=== PATIENT | female | born 1995 | race Caucasian/White ===

== ENCOUNTER → 2018-04-17 | Outpatient (CLI) | payer OTHER ==
--- NOTE | 2018-04-18 07:55 | XR ---
Lumbosacral spine HISTORY: Low back pain 5 views of the lumbosacral spine No comparisons There is no evident spondylolysis or spondylolisthesis. Lumbar vertebral bodies show preserved height and bone mineralization. Disc spaces are maintained with exception of loss of disc height L5-S1. Pos sible Schmorl's node formation present at superior endplate L1 and L2. IMPRESSION: Disc height loss L5-S1, lumbar MRI may be of benefit.
== END | disposition home or self-care (01) ==
LOC: RADXRMAIN 16:33
PROVIDERS: ATTEND Family Medicine
DX: S39.012A Strain of muscle, fascia and tendon of lower back, initial encounter (principal); M53.87 Other specified dorsopathies, lumbosacral region
CPT/HCPCS: 72110

== ENCOUNTER 2018-10-21 15:12 | Emergency (ER) | payer OTHER ==
[2018-10-21 15:27] VITALS: RESP 18
[2018-10-21] MEDS ORDERED: SODIUM CHLORIDE 0.9% 1,000 ML IV STA (15:33)
--- NOTE | 2018-10-21 16:24 | ED ---
Syncope HPI - General Chief Complaint: Syncope Stated Complaint: Syncope Time Seen by Provider: 10/21/18 15:33 Source: patient Mode of arrival: ambulatory Limitations: no limitations - History of Present Illness Initial Comments: 23-year-old female presenting today for chief complaint of syncope. Patient states just prior to arrival, he was in the shower when she suddenly felt as though she was going to pass out. She states she is unsure how long she was passed out for however it appeared briefly. Patient denies any headache, nausea , vomiting, pain, dyspnea, dyspnea on exertion. Patient denies any abnormal symptoms within the past week. Pt states she does think she hit her head, denies any bruising/bumps, head or neck pain. Pt states she is feeling slightly lightheaded however remaining ROS (-), patient denies any recent fever, chills, shortness of breath, chest pain, back pain, abdominal pain, nausea or vomiting, numbness or tingling, dysuria or hematuria, constipation or diarrhea, headaches or visual changes, or any other complaints. Pt denies experiencing this before. Pt states she doesnt drink water daily. Lips obviously dry on history taking. Pt states she is currently menstruating. - Related Data Home Medications Medication Instructions Recorded Confirmed No Known Home Medications 10/21/18 10/21/18 Allergies Allergy/AdvReac Type Severity Reaction Status Date / Time No Known Allergies Allergy Verified 10/21/18 16:19 Review of Systems ROS Statement: Those systems with pertinent positive or pertinent negative responses have been documented in the HPI. ROS Other: All systems not noted in ROS Statement are negative. Past Medical History Past Medical History: No Reported History Additional Past Medical History / Comment(s): Obstetrical history: this is her first , she's had good care with me since 16 weeks gestation. Her EDC is 01/09/2014 by an 18 week ultrasound. Her blood type is O+ antibodies negative, rubella immune, RPR nonreactive, hepatitis B negative, HIV nonreactive, toxoplasmosis negative. Normal 1 hour glucose tolerance test. History of Any Multi-Drug Resistant Organisms: None Reported Past Surgical History: Section, Tonsillectomy Past Anesthesia/Blood Transfusion Reactions: No Reported Reaction Past Psychological History: ADD/ADHD Smoking Status: Never smoker Past Alcohol Use History: None Reported Past Drug Use History: None Reported - Past Family History Mother Family Medical History: Hypertension Additional Family Medical History / Comment(s): ZAKIA'S MOTHER-HTN General Exam - General Exam Comments Initial Comments: General: The patient is awake and alert, in no distress, and does not appear acutely ill. Eye: Pupils are equal, round and reactive to light, extra-ocular movements are intact. No nystagmus. There is normal conjunctiva bilaterally. No signs of icterus. Ears, nose, mouth and throat: There are dry mucous membranes and no oral lesions. Pt lips cracked Neck: The neck is supple, there is no tenderness or JVD. Cardiovascular: There is a regular rate and rhythm. No murmur, rub or gallop is appreciated. Respiratory: Lungs are clear to auscultation, respirations are non-labored, breath sounds are equal. No wheezes, stridor, rales, or rhonchi. Gastrointestinal: Soft, non-distended, non-tender abdomen without masses or organomegaly noted. There is no rebound or guarding present. No CVA tenderness. Bowel sounds are unremarkable. Musculoskeletal: Normal ROM, no tenderness. Strength 5/5. Sensation intact. Pulses equal bilaterally 2+. Neurological: A&O x 3. CN II-XII intact, There are no obvious motor or sensory deficits. Coordination appears grossly intact. Speech is normal. Skin: Skin is warm and dry and no rashes or lesions are noted. No lower extremity edema. Decreased skin turgor Psychiatric: Cooperative, appropriate mood & affect, normal judgment. Limitations: no limitations Course Vital Signs 10/21/18 10/21/18 10/21/18 15:25 15:58 18:11 Temperature 98.6 F 98.0 F Pulse Rate 107 H 96 Respiratory 18 18 Rate Blood Pressure 131/80 127/78 Blood Pressure 133/83 [Right Arm Sitting] Blood Pressure 131/83 [Right Arm Standing] Blood Pressure 122/74 [Right Arm Supine] O2 Sat by Pulse 98 98 Oximetry EKG Findings - EKG Comments: EKG Findings:: A 12-lead EKG was performed and shows the following: Rate is 102bpm, and rhythm is normal sinus. There are normal QRS complexes and normal R- wave progression. ST segments have no elevation or depression, and ND segments appear normal. Medical Decision Making - Medical Decision Making Well-appearing 23-year-old female. Patient appears dry and exam. Orthostatic negative however pulses were not obtained. Patient states she goes days without drinking water. Patient states she is trying to make a better habit of this. Patient was a hard stick for IV. Patient states she has no longer wanted IV or blood testing. She states she refuses. Patient does not want IV hydration. Patient states she will increase her fluid intake at home. In encouraged allowing the nurse area loss prevention manager to come poke however patient refused. Patient denies any chest pain or findings concerning for acute coronary syndrome. EKG within acceptable limits. This was evaluated by myself as well as attending provider. This time I do feel patient is stable for discharge. Patient is to follow-up for outpatient laboratory studies as well as turned to the emergency department for any additional episodes. Patient is agreeable discharge plan and return parameters denies questions at this time. Case was discussed in detail with Dr. Morrison attending provider including patient refusal for laboratory studies. He is agreeable patient's discharge. - Lab Data Lab Results 10/21/18 10/21/18 Range/Units 16:19 16:19 Urine Color Yellow Urine Appearance Clear (Clear) Urine pH 7.0 (5.0-8.0) Ur Specific [place] 1.013 (1.001-1.035) Urine Protein Trace H (Negative) Urine Glucose (UA) Negative (Negative) Urine Ketones Negative (Negative) Urine Blood Moderate H (Negative) Urine Nitrite Negative (Negative) Urine Bilirubin Negative (Negative) Urine Urobilinogen <2.0 (<2.0) mg/dL Ur Leukocyte Esterase Small H (Negative) Urine RBC >182 H (0-5) /hpf Urine WBC 8 H (0-5) /hpf Ur Squamous Epith Cells <1 (0-4) /hpf Urine Mucus Rare H (None) /hpf Urine HCG, Qual Not Detected (Not Detectd) Disposition Clinical Impression: Syncope Disposition: HOME SELF-CARE Condition: Good Instructions (If sedation given, give patient instructions): Syncope (ED) Additional Instructions: Please use medication as discussed. Please follow-up with family doctor in the next 2 days for laboratory studies. PLEASE INCREASE ORAL INTAKE OF WATER. Please return to emergency room if the symptoms increase or worsen or for any other concerns. Is patient prescribed a controlled substance at d/c from ED?: No Referrals: Francheska Schilling MD [Primary Care Provider] - 1-2 days Time of Disposition: 17:12
[2018-10-21 16:43] LABS: Appearance,Urine Clear (Clear); Bilirubin,Urine Negative (Negative); Blood,Urine Moderate (Negative); Color,Urine Yellow; Glucose,Urine (UA) Negative (Negative); Ketones,Urine Negative (Negative); Leukocyte Esterase,Urine Small (Negative); Mucus,Urine Rare /hpf; Nitrite,Urine Negative (Negative); Protein,Urine Trace (Negative); RBC,Urine >182 /hpf (0-5); Specific Gravity,Urine 1.013 (1.001-1.035); Squamous Epithelial Cell,Urine <1 /hpf (0-4); Urobilinogen,Urine <2.0 mg/dL (<2.0); WBC,Urine 8 /hpf (0-5)
--- NOTE | 2018-10-21 17:26 | XR ---
EXAMINATION TYPE: XR chest 2V DATE OF EXAM: 10/21/2018 COMPARISON: 07/04/2017 INDICATION: Syncope TECHNIQUE: Frontal and lateral views of the chest are obtained. FINDINGS: The heart size is normal. The pulmonary vasculature is normal. The lungs are clear. IMPRESSION: 1. No acute pulmonary process.
[2018-10-21 18:13] VITALS: BP 127/78; PULSE 96; TEMP 98
== END 2018-10-21 18:11 | disposition home or self-care (01) ==
LOC: EC 15:12
DX: R55 Syncope and collapse (principal); Z53.29 Procedure and treatment not carried out because of patient's decision for other reasons
CPT/HCPCS: 71046; 81001; 81025; 93005; 99284

== ENCOUNTER 2018-12-21 23:04 | Emergency (ER) | payer OTHER ==
[2018-12-21 23:08] VITALS: BP 140/84; PULSE 91; RESP 20; TEMP 98.9
[2018-12-21] MEDS ORDERED: SODIUM CHLORIDE 0.9% 1,000 ML IV ONE (23:31)
[2018-12-22 00:05] LABS: Appearance,Urine Clear (Clear); Bilirubin,Urine Negative (Negative); Blood,Urine Negative (Negative); Color,Urine Light Yellow; Glucose,Urine (UA) Negative (Negative); Ketones,Urine Negative (Negative); Leukocyte Esterase,Urine Negative (Negative); Nitrite,Urine Negative (Negative); PH, Urine 6.5 (5.0-8.0); Protein,Urine Negative (Negative); Specific Gravity,Urine 1.019 (1.001-1.035); Urobilinogen,Urine <2.0 mg/dL (<2.0)
[2018-12-22] MEDS ORDERED: LOPERAMIDE 2 MG CAP PO STA (00:08)
--- NOTE | 2018-12-22 00:09 | ED ---
Nausea/Vomiting/Diarrhea HPI - General Chief complaint: Nausea/Vomiting/Diarrhea Stated complaint: Diarrhea Time Seen by Provider: 12/21/18 23:30 Source: patient, family Mode of arrival: ambulatory Limitations: no limitations - History of Present Illness Initial comments: 23-year-old female presenting for diarrhea 2 hours. She states she had diarrhea beginning 2 hours ago. Patient states is green and loose. Patient denies watery bloody diarrhea. She denies any specific food she had had to eat. Patient denies a fever chills or night sweats. Patient denies recent travel. Patient denies abdominal pain. Patient denies vomiting. Patient has no past medical history. Remaining review of systems negative. - Related Data Home Medications Medication Instructions Recorded Confirmed No Known Home Medications 10/21/18 10/21/18 Allergies Allergy/AdvReac Type Severity Reaction Status Date / Time No Known Allergies Allergy Verified 12/21/18 23:08 Review of Systems ROS Statement: Those systems with pertinent positive or pertinent negative responses have been documented in the HPI. ROS Other: All systems not noted in ROS Statement are negative. Past Medical History Past Medical History: No Reported History Additional Past Medical History / Comment(s): Obstetrical history: this is her first , she's had good care with me since 16 weeks gestation. Her EDC is 01/09/2014 by an 18 week ultrasound. Her blood type is O+ antibodies negative, rubella immune, RPR nonreactive, hepatitis B negative, HIV nonreactive, toxoplasmosis negative. Normal 1 hour glucose tolerance test. History of Any Multi-Drug Resistant Organisms: None Reported Past Surgical History: Section, Tonsillectomy Past Anesthesia/Blood Transfusion Reactions: No Reported Reaction Past Psychological History: ADD/ADHD Smoking Status: Never smoker Past Alcohol Use History: None Reported Past Drug Use History: None Reported - Past Family History Mother Family Medical History: Hypertension Additional Family Medical History / Comment(s): FOB'S MOTHER-HTN General Exam - General Exam Comments Initial Comments: General: The patient is awake and alert, in no distress, and does not appear acutely ill. Eye: Pupils are equal, round and reactive to light, extra-ocular movements are intact. No nystagmus. There is normal conjunctiva bilaterally. No signs of icterus. Ears, nose, mouth and throat: There are moist mucous membranes and no oral lesions. Neck: The neck is supple, there is no tenderness or JVD. Cardiovascular: There is a regular rate and rhythm. No murmur, rub or gallop is appreciated. Respiratory: Lungs are clear to auscultation, respirations are non-labored, breath sounds are equal. No wheezes, stridor, rales, or rhonchi. Gastrointestinal: Soft, non-distended, non-tender abdomen without masses or organomegaly noted. There is no rebound or guarding present. No CVA tenderness. Bowel sounds are unremarkable. Musculoskeletal: Normal ROM, no tenderness. Strength 5/5. Sensation intact. Pulses equal bilaterally 2+. Neurological: A&O x 3. CN II-XII intact, There are no obvious motor or sensory deficits. Coordination appears grossly intact. Speech is normal. Skin: Skin is warm and dry and no rashes or lesions are noted. Psychiatric: Cooperative, appropriate mood & affect, normal judgment. Limitations: no limitations Course Vital Signs 12/21/18 23:06 Temperature 98.9 F Pulse Rate 91 Respiratory 20 Rate Blood Pressure 140/84 O2 Sat by Pulse 99 Oximetry Medical Decision Making - Medical Decision Making 23-year-old presenting for diarrhea 2 hours. Patient denies any constitutional symptoms. Patient denies abdominal pain, benign abdominal exam. No concerning history for infectious etiology. Patient be discharged with loperamide. Patient agreeable to plan discharge. Parameters were discussed with patient who verbalized understanding. - Lab Data Lab Results 12/21/18 12/21/18 Range/Units 23:54 23:54 Urine Color Light Yellow Urine Appearance Clear (Clear) Urine pH 6.5 (5.0-8.0) Ur Specific [place] 1.019 (1.001-1.035) Urine Protein Negative (Negative) Urine Glucose (UA) Negative (Negative) Urine Ketones Negative (Negative) Urine Blood Negative (Negative) Urine Nitrite Negative (Negative) Urine Bilirubin Negative (Negative) Urine Urobilinogen <2.0 (<2.0) mg/dL Ur Leukocyte Esterase Negative (Negative) Urine HCG, Qual Not Detected (Not Detectd) Disposition Clinical Impression: Acute diarrhea Disposition: HOME SELF-CARE Condition: Good Instructions (If sedation given, give patient instructions): Acute Diarrhea (ED) Additional Instructions: Please use medication as discussed. Please follow-up with family doctor in the next 2 days of symptoms have not improved. Please return to emergency room if the symptoms increase or worsen or for any other concerns. Is patient prescribed a controlled substance at d/c from ED?: No Referrals: Deborah Mak MD [Primary Care Provider] - 1-2 days Time of Disposition: 00:09
== END 2018-12-22 00:21 | disposition home or self-care (01) ==
LOC: EC 23:04
DX: R19.7 Diarrhea, unspecified (principal)
CPT/HCPCS: 81003; 81025; 99284

== ENCOUNTER 2019-07-28 12:16 | Emergency (ER) | payer OTHER ==
[2019-07-28 12:37] VITALS: BP 130/77; PULSE 100; TEMP 98.5
[2019-07-28 12:52] VITALS: RESP 18
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
== END 2019-07-28 13:05 | disposition home or self-care (01) ==
LOC: EC 12:16
DX: R45.0 Nervousness (principal); V47.6XXA Car passenger injured in collision with fixed or stationary object in traffic accident, initial encounter; Y92.415 Exit ramp or entrance ramp of street or highway as the place of occurrence of the external cause; Y93.89 Activity, other specified
CPT/HCPCS: 99283

== ENCOUNTER 2019-07-31 13:53 | Emergency (ER) | payer OTHER ==
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
--- NOTE | 2019-07-31 15:33 | XR ---
EXAMINATION TYPE: XR lumbar spine 2 or 3V DATE OF EXAM: 07/31/2019 CLINICAL HISTORY: Back pain after injury TECHNIQUE: Frontal and lateral images of the lumbar spine are obtained. COMPARISON: 04/17/2018 FINDINGS: There are 5 lumbar type vertebral bodies identified. The lumbar spine shows satisfactory alignment without evidence of acute fracture or dislocation. Vertebral body heights and disk space he ights are within normal limits. Slight dextroscoliosis of the lumbar spine may be positional. This is not redemonstrated on the prior exam. The overlying soft tissue appears unremarkable. IMPRESSION: No acute fracture or dislocation is seen in the lumbar spine.
--- NOTE | 2019-07-31 15:34 | XR ---
EXAMINATION TYPE: XR cervical spine comp DATE OF EXAM: 07/31/2019 TECHNIQUE: Frontal, lateral, oblique, swimmers, and open mouth view of the cervical spine are obtaine d. HISTORY: Neck pain after injury COMPARISON: None FINDINGS: The cervical spine is visualized in its entirety from C1 thru the C7 level, it is satisfac tory in alignment without evidence of acute fracture or dislocation. The pre-vertebral soft tissue a ppears within normal limits. The C1-C2 articulation is within normal limits on the open mouth view. The oblique images are within normal limits. IMPRESSION: No acute fracture or malalignment is seen in the cervical spine.
[2019-07-31 16:12] VITALS: BP 141/79; PULSE 92; RESP 17; TEMP 97.9
== END 2019-07-31 16:12 | disposition home or self-care (01) ==
LOC: EC 13:53
DX: S39.012A Strain of muscle, fascia and tendon of lower back, initial encounter (principal); S16.1XXA Strain of muscle, fascia and tendon at neck level, initial encounter; R51 Headache; V57.5XXA Driver of pick-up truck or van injured in collision with fixed or stationary object in traffic accident, initial encounter; Y92.410 Unspecified street and highway as the place of occurrence of the external cause
CPT/HCPCS: 72050; 72100; 99284

== ENCOUNTER 2019-08-29 10:43 | Emergency (ER) | payer OTHER ==
[2019-08-29 10:52] VITALS: BP 124/89; PULSE 109; RESP 19; TEMP 98.3
--- NOTE | 2019-08-29 11:32 | ED ---
Dizziness HPI - General Chief Complaint: Dizziness Stated Complaint: Dizzy, vomiting Time Seen by Provider: 08/29/19 11:03 Source: patient, RN notes reviewed, old records reviewed Mode of arrival: ambulatory Limitations: no limitations - History of Present Illness Initial Comments: 24 year old female presents for evaluation for positional dizziness, vomiting, sinus pressure. she reports she was diagnosed with possible vertigo, but was not prescribed medications such as antivert for this by her pcp. she did have flonase. patient states that this occurred last week she had a full evaluation including blood work. patient states that she has no chest pain and shortness of breath. she also reports that she's been having some gastritis issues and was recently placed on prilosec. she reports that she is improving abdominal pain since being on prilosec. main complaint today is sinus fullness and vertigo like dizziness from time to time over the past few days. patient at this time since she's had no fever. denies any recent antibiotic use. - Related Data Previous Rx's Medication Instructions Recorded Amoxicillin/Potassium Clav 1 tab PO BID 3 Days #14 tab 08/29/19 [Augmentin 875-125 Tablet] Meclizine [Antivert] 25 mg PO TID #12 tab 08/29/19 Allergies Allergy/AdvReac Type Severity Reaction Status Date / Time No Known Allergies Allergy Verified 07/31/19 14:09 Review of Systems ROS Statement: Those systems with pertinent positive or pertinent negative responses have been documented in the HPI. ROS Other: All systems not noted in ROS Statement are negative. Past Medical History Past Medical History: No Reported History Additional Past Medical History / Comment(s): Obstetrical history: this is her first , she's had good care with hi since 16 weeks gestation. Her EDC is 01/09/2014 by an 18 week ultrasound. Her blood type is O+ antibodies negative, rubella immune, RPR nonreactive, hepatitis B negative, HIV nonreactive, toxoplasmosis negative. Normal 1 hour glucose tolerance test. History of Any Multi-Drug Resistant Organisms: None Reported Past Surgical History: Section, Tonsillectomy Past Anesthesia/Blood Transfusion Reactions: No Reported Reaction Past Psychological History: ADD/ADHD Smoking Status: Never smoker Past Alcohol Use History: None Reported Past Drug Use History: None Reported - Past Family History Mother Family Medical History: Hypertension Additional Family Medical History / Comment(s): FOB'S MOTHER-HTN General Exam - General Exam Comments Initial Comments: Alert and oriented 24-year-old female. No distress. Limitations: no limitations Head exam: Present: atraumatic, normocephalic, normal inspection Eye exam: Present: normal appearance, PERRL, EOMI. Absent: scleral icterus, conjunctival injection, periorbital swelling ENT exam: Present: normal exam, mucous membranes moist, other (Bilateral maxillary sinus tenderness.) Neck exam: Present: normal inspection. Absent: tenderness, meningismus, lymphadenopathy Respiratory exam: Present: normal lung sounds bilaterally. Absent: respiratory distress, wheezes, rales, rhonchi, stridor Cardiovascular Exam: Present: regular rate, normal rhythm, normal heart sounds. Absent: systolic murmur, diastolic murmur, rubs, gallop, clicks GI/Abdominal exam: Present: soft, normal bowel sounds. Absent: distended, tenderness, guarding, rebound, rigid Extremities exam: Present: normal inspection, full ROM, normal capillary refill. Absent: tenderness, pedal edema, joint swelling, calf tenderness Back exam: Present: normal inspection Neurological exam: Present: alert Psychiatric exam: Present: normal affect, normal mood Skin exam: Present: warm, dry, intact, normal color. Absent: rash Course Vital Signs 08/29/19 10:49 Temperature 98.3 F Pulse Rate 109 H Respiratory 19 Rate Blood Pressure 124/89 O2 Sat by Pulse 96 Oximetry Medical Decision Making - Medical Decision Making 24-year-old female presents today with sinus pressure, vertigo like dizziness. She does have some fluid within her right TM. The same Patient will be treated for sinusitis with antibiotic. This is likely source for vertigo. Also discharging prescription for Antivert. Discussed the Patient follow-up with her primary care doctor. I did offer blood work and further testing. She states that she just had one done this week and does not want to have further testing. . Discussed return parameters and following up with PCP. Disposition Clinical Impression: Sinusitis, Vertigo Disposition: HOME SELF-CARE Condition: Good Instructions (If sedation given, give patient instructions): Sinusitis (ED) Additional Instructions: Patient advised to use the Prilosec and Zofran as prescribed. Patient can add Antivert and use Augmentin to help with sinusitis. Patient should follow-up with her primary care doctor. Return to emergency department if any alarming signs or symptoms occur. Prescriptions: Meclizine [Antivert] 25 mg PO TID #12 tab Amoxicillin/Potassium Clav [Augmentin 875-125 Tablet] 1 tab PO BID 3 Days #14 tab Is patient prescribed a controlled substance at d/c from ED?: No Referrals: Deborah Mak MD [Primary Care Provider] - 1-2 days Time of Disposition: 11:30
== END 2019-08-29 11:44 | disposition home or self-care (01) ==
LOC: EC 10:43
DX: J32.9 Chronic sinusitis, unspecified (principal); R42 Dizziness and giddiness; R11.10 Vomiting, unspecified; R10.9 Unspecified abdominal pain; Z79.899 Other long term (current) drug therapy
CPT/HCPCS: 99284

== ENCOUNTER 2019-09-29 22:48 | Emergency (ER) | payer OTHER ==
[2019-09-29 22:56] VITALS: BP 131/88; PULSE 93; RESP 16; TEMP 98
[2019-09-29] MEDS ORDERED: MECLIZINE 12.5 MG TAB PO STA (23:17)
[2019-09-29] MEDS ORDERED: AMOXIC-POT CLAV 875MG STARTER 2 EACH TABLET PO STA (23:18)
[2019-09-29] MEDS ORDERED: SODIUM CHLORIDE 0.9% 1,000 ML IV ONE (23:18)
--- NOTE | 2019-09-29 23:29 | ED ---
Dizziness HPI - General Chief Complaint: Dizziness Stated Complaint: dizziness Time Seen by Provider: 09/29/19 23:01 Source: patient Mode of arrival: ambulatory Limitations: no limitations - History of Present Illness Initial Comments: 24-year-old female presenting today for chief complaint of sensation that the room is spilling, sinus pressure. Patient states approximately one month ago she was experiencing identical symptoms when she had a sinus infection she states she did size pressure and pain. Patient states that after she was prescribed Augmentin and meclizine the sensation went away. Patient states that she had resolution of symptoms for approximately 2-3 weeks however approximately 10-12 days ago the symptoms return. Patient states she is less nauseous this time. Patient denies any headache visual changes chest pain shortness of breath she states she does not feel presyncopal. Patient states that this sensation of dizziness increases with rapid turning of the head. Patient denies fevers or neck stiffness remaining review systems negative upon arrival patient appears well no signs of acute distress. Patient states she does have a scheduled appointment with ENT on Monday and came for symptomatic relief - Related Data Previous Rx's Medication Instructions Recorded Amoxicillin/Potassium Clav 1 tab PO BID 3 Days #14 tab 08/29/19 [Augmentin 875-125 Tablet] Meclizine [Antivert] 25 mg PO TID #12 tab 08/29/19 Amoxic-Pot Clav 875-125Mg 1 tab PO Q12HR 10 Days #20 tablet 09/29/19 [Augmentin 875-125] Meclizine [Antivert] 25 mg PO BID 7 Days #14 tab 09/29/19 Allergies Allergy/AdvReac Type Severity Reaction Status Date / Time No Known Allergies Allergy Verified 09/29/19 22:56 Review of Systems ROS Statement: Those systems with pertinent positive or pertinent negative responses have been documented in the HPI. ROS Other: All systems not noted in ROS Statement are negative. Past Medical History Past Medical History: No Reported History Additional Past Medical History / Comment(s): Obstetrical history: this is her first , she's had good care with me since 16 weeks gestation. Her EDC is 01/09/2014 by an 18 week ultrasound. Her blood type is O+ antibodies negative, rubella immune, RPR nonreactive, hepatitis B negative, HIV nonreactive, toxoplasmosis negative. Normal 1 hour glucose tolerance test. History of Any Multi-Drug Resistant Organisms: None Reported Past Surgical History: Section, Tonsillectomy Past Anesthesia/Blood Transfusion Reactions: No Reported Reaction Past Psychological History: ADD/ADHD Smoking Status: Never smoker Past Alcohol Use History: None Reported Past Drug Use History: None Reported - Past Family History Mother Family Medical History: Hypertension Additional Family Medical History / Comment(s): ZAKIA'S MOTHER-HTN General Exam - General Exam Comments Initial Comments: General: The patient is awake and alert, in no distress, and does not appear acutely ill. Eye: +3 mm pupils are equal, round and reactive to light, extra-ocular movements are intact. No nystagmus. There is normal conjunctiva bilaterally. No signs of icterus. Ears, nose, mouth and throat: There are moist mucous membranes and no oral lesions. Oropharynx nonerythematous. No bulging tympanic membranes or erythema. Patient does have tenderness to palpation of the maxillary and ethmoid sinuses b/l. Pain with downward head motion. Neck: The neck is supple, there is no tenderness or JVD. Cardiovascular: There is a regular rate and rhythm. No murmur, rub or gallop is appreciated. Respiratory: Lungs are clear to auscultation, respirations are non-labored, breath sounds are equal. No wheezes, stridor, rales, or rhonchi. Musculoskeletal: Normal ROM, no tenderness. Strength 5/5. Sensation intact. Radial pulses equal bilaterally 2+. Neurological: A&O x 3. CN II-XII intact, There are no obvious motor or sensory deficits. Coordination appears grossly intact. Speech is normal. Finger to nose and heel to since within cornea. Gait is without ataxia. Skin: Skin is warm and dry and no rashes or lesions are noted. Psychiatric: Cooperative, appropriate mood & affect, normal judgment. Limitations: no limitations Course Vital Signs 09/29/19 22:53 Temperature 98.0 F Pulse Rate 93 Respiratory 16 Rate Blood Pressure 131/88 O2 Sat by Pulse 99 Oximetry Medical Decision Making - Medical Decision Making 24yo presenting for sinus pressure dizziness. Similar to experience in past. Given meclizine and Augmentin in the emergency department. Given patient's length of symptoms she'll be discharged with Augmentin as well as meclizine I advised patient to follow up with ENT as I feel this is most likely related to a peripheral cause. Patient has no nystagmus or signs of ataxis. No focal neurological deficits/BOYER or visual changes. Discussed case with Jeffy neal who is agreeable to care plan and discharge. Patient is agreeable to care plan and discharge at this time. Disposition Clinical Impression: Dizziness, Sinusitis Disposition: HOME SELF-CARE Condition: Good Instructions (If sedation given, give patient instructions): Dizziness (ED) Additional Instructions: Please use medication as discussed. Please follow-up with family doctor in the next 2 days, and ENT this week as scheduled.. Please return to emergency room if the symptoms increase or worsen or for any other concerns. Prescriptions: Meclizine [Antivert] 25 mg PO BID 7 Days #14 tab Amoxic-Pot Clav 875-125Mg [Augmentin 875-125] 1 tab PO Q12HR 10 Days #20 tablet Is patient prescribed a controlled substance at d/c from ED?: No Referrals: Deborah Mak MD [Primary Care Provider] - 1-2 days Michael Villanueva MD [STAFF PHYSICIAN] - 1-2 days Carlos Greer DO [Doctor of Osteopathic Medicine] - 1-2 days Time of Disposition: 23:29
== END 2019-09-29 23:42 | disposition home or self-care (01) ==
LOC: EC 22:48
DX: J32.9 Chronic sinusitis, unspecified (principal); R42 Dizziness and giddiness
CPT/HCPCS: 99283

== ENCOUNTER 2022-06-30 17:20 | Emergency (ER) | payer OTHER ==
[2022-06-30 18:39] VITALS: RESP 18; TEMP 98.4
[2022-06-30] MEDS ORDERED: ACETAMINOPHEN TAB 500 MG TAB PO STA (19:35)
[2022-06-30] MEDS ORDERED: METOCLOPRAMIDE 10 MG TAB PO STA (19:35)
[2022-06-30] MEDS ORDERED: ONDANSETRON 4 MG TAB PO STA (19:35)
[2022-06-30] MEDS ORDERED: ONDANSETRON 4 MG ODT STARTER PACK 2 TAB BTL PO STA (21:04)
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
[2022-06-30 21:22] VITALS: BP 112/76; PULSE 71
== END 2022-06-30 21:22 | disposition home or self-care (01) ==
LOC: EC 17:20
DX: S09.90XA Unspecified injury of head, initial encounter (principal); R42 Dizziness and giddiness; R11.0 Nausea; R51.9 Headache, unspecified; W01.118A Fall on same level from slipping, tripping and stumbling with subsequent striking against other sharp object, initial encounter
CPT/HCPCS: 99283; S0119

== ENCOUNTER → 2022-07-01 | Outpatient (CLI) | payer OTHER ==
--- NOTE | 2022-07-01 17:26 | CT ---
EXAMINATION TYPE: CT brain wo con CT DLP: 1029.9 mGycm, Automated exposure control for dose reduction was used. DATE OF EXAM: 07/01/2022 5:10 PM COMPARISON: None. CLINICAL INDICATION:Female, 27 years old with history of S00.83XA CONTUSION HEAD, F07.81 POST CONCUS ALEXANDRA, Contusion to head. Nausea and lightheadedness TECHNIQUE: Brain: Axial CT images of the brain were obtained with coronal and sagittal reformats created and rev iewed. Contrast used: None. Oral contrast used: None. FINDINGS: Brain: Extra-axial spaces: No abnormal extra-axial fluid collections. Ventricular system: Within normal limits Cerebral parenchyma: No acute intraparenchymal hemorrhage or mass effect. The hdez-white junction is well differentiated. Cerebellum: Unremarkable. Mass effect: No evidence of midline shift. Intracranial vasculature: unremarkable Soft tissues: Scattered partially calcified suspected sebaceous cysts within the scalp No evidence or scalp hematoma. Calvarium/osseous structures: No depressed skull fracture. 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 Paranasal sinuses and mastoid air cells: Mild scattered paranasal sinus disease. Visualized orbits: Orbital contents are intact. IMPRESSION: No acute intracranial process.
--- NOTE | 2022-07-01 17:27 | CT ---
EXAMINATION TYPE: CT cervical spine wo con CT DLP: 750.4 mGycm, Automated exposure control for dose reduction was used. DATE OF EXAM: 07/01/2022 5:10 PM COMPARISON: None. CLINICAL INDICATION:Female, 27 years old with history of S00.83XA CONTUSION HEAD, F07.81 POST CONCUS ALEXANDRA; , Contusion to head. Nausea and lightheadedness TECHNIQUE: Axial CT images from the skull base to the inferior aspect of T2 we obtained without intra venous contrast. Coronal and sagittal reformatted images were also reviewed. FINDINGS: Fracture: None. Osseous structures: Congenital nonfusion of the posterior arch of C1. Vertebral alignment: Alignment within normal limits. Spinal canal/Neural Foramina: No evidence of significant spinal canal narrowing. No evidence for sign ificant neural foraminal stenosis. Neck soft tissues: Prevertebral soft tissues are within normal limits. Other: The airway is patent. Enlarged adenoids and palatine tonsils. IMPRESSION: 1. No evidence of cervical spine fracture.
== END | disposition home or self-care (01) ==
LOC: RADCTMAIN 16:40
PROVIDERS: ATTEND Emergency Medicine
DX: S00.83XA Contusion of other part of head, initial encounter (principal); S13.4XXA Sprain of ligaments of cervical spine, initial encounter; F07.81 Postconcussional syndrome
CPT/HCPCS: 70450; 72125

== ENCOUNTER → 2023-09-26 | Outpatient (CLI) | payer OTHER ==
--- NOTE | 2023-09-26 14:28 | XR ---
EXAMINATION TYPE: XR knee complete LT DATE OF EXAM: 09/26/2023 CLINICAL HISTORY: pain TECHNIQUE: Three views of the left knee are obtained. COMPARISON: None. FINDINGS: There is no acute fracture/dislocation. The tri-compartment joint spaces appear within no rmal limits. The overlying soft tissue appears unremarkable. IMPRESSION: There is no acute fracture or dislocation ICD 10 NO FRACTURE, INITIAL EVALUATION
--- NOTE | 2023-09-26 14:28 | XR ---
EXAMINATION TYPE: XR Hip Complete LT, XR pelvis AP view DATE OF EXAM: 09/26/2023 CLINICAL HISTORY: pain TECHNIQUE: AP and frogleg views of the left hip are obtained. Single view of the pelvis also submitt ed. COMPARISON: None. FINDINGS: There is no acute fracture/dislocation evident. The joint space appears within normal li mits. The overlying soft tissue appears unremarkable. IMPRESSION: 1. There is no acute fracture or dislocation. ICD 10 NO FRACTURE, INITIAL EVALUATION
--- NOTE | 2023-09-26 14:28 | XR ---
EXAMINATION TYPE: XR lumbar spine 2 or 3V DATE OF EXAM: 09/26/2023 CLINICAL HISTORY: pain TECHNIQUE: Three views of the lumbar spine are submitted. COMPARISON: None. FINDINGS: There are 5 lumbar type vertebral bodies identified. The lumbar spine shows satisfactory alignment w ithout evidence of acute fracture or dislocation. Vertebral body heights are within normal limits. Disc spaces are within normal limits. The overlying soft tissue appears unremarkable. IMPRESSION: No acute fracture or dislocation is seen in the lumbar spine. ICD 10 NO FRACTURE, INITIAL EVALUATION
--- NOTE | 2023-09-26 14:29 | XR ---
EXAMINATION TYPE: XR tibia fibula LT DATE OF EXAM: 09/26/2023 CLINICAL HISTORY: pain TECHNIQUE: AP and lateral images of the left tibia and fibula are obtained. COMPARISON: None. FINDINGS: There is no acute fracture/dislocation evident. The joint spaces appear within normal lindsay its. The overlying soft tissue appears unremarkable. IMPRESSION: There is no acute fracture or dislocation seen. ICD 10 NO FRACTURE, INITIAL EVALUATION
== END | disposition home or self-care (01) ==
LOC: RADXRMAIN 12:52
PROVIDERS: ATTEND Emergency Medicine
DX: S33.5XXA Sprain of ligaments of lumbar spine, initial encounter (principal); S70.02XA Contusion of left hip, initial encounter; S80.02XA Contusion of left knee, initial encounter; S70.12XA Contusion of left thigh, initial encounter; S80.12XA Contusion of left lower leg, initial encounter; X58.XXXA Exposure to other specified factors, initial encounter
CPT/HCPCS: 72100; 72170; 73502

== ENCOUNTER → 2023-09-29 | Outpatient (CLI) | payer OTHER ==
--- NOTE | 2023-09-29 11:51 | XR ---
EXAMINATION TYPE: XR femur LT DATE OF EXAM: 09/29/2023 CLINICAL HISTORY: pain TECHNIQUE: Two views of the left femur are obtained. COMPARISON: None. FINDINGS: There is no acute fracture or dislocation seen of the femur. The hip and knee joints ethan ear within normal limits. The overlying soft tissue appears unremarkable. IMPRESSION: There is no acute fracture or dislocation seen of the femur. ICD 10 NO FRACTURE, INITIAL EVALUATION
== END | disposition home or self-care (01) ==
LOC: RADXRMAIN 11:20
PROVIDERS: ATTEND Emergency Medicine
DX: S70.12XD Contusion of left thigh, subsequent encounter (principal)

== ENCOUNTER → 2023-10-18 | Outpatient (CLI) | payer OTHER ==
--- NOTE | 2023-10-18 13:39 | XR ---
Review left knee. DATE: 10/18/2023. COMPARISON: None available. MEDICAL HISTORY: Pain after fall. FINDINGS: There is no fracture, subluxation or dislocation. The joint spaces are within normal limits. No effusions are seen. IMPRESSION: No acute osseous abnormalities.
--- NOTE | 2023-10-18 21:51 | XR ---
EXAMINATION TYPE: XR ankle complete 3 views LT DATE OF EXAM: 10/18/2023 Comparison: None Clinical History: 28-year-old female S80.02XD CONTUSION OF LEFT KNEE, SUBSEQUENT S80.12XD CONTUSI Findings: Ankle mortise is congruent with preservation of the distal tibiofibular overlap. Talar dome is intact . No delineation to the Achilles tendon. Small plantar heel spur. Os supra naviculare noted on the la teral view. Impression: No acute osseous abnormality seen.
== END | disposition home or self-care (01) ==
LOC: RADXRMAIN 12:53
PROVIDERS: ATTEND Emergency Medicine
DX: S80.02XD Contusion of left knee, subsequent encounter (principal); S80.12XD Contusion of left lower leg, subsequent encounter; W19.XXXD Unspecified fall, subsequent encounter

== ENCOUNTER → 2023-10-20 | Outpatient (CLI) | payer OTHER | END | disposition home or self-care (01) | LOC: RADMRIMAIN 09:30 | PROVIDERS: ATTEND Emergency Medicine | DX: Z53.9 Procedure and treatment not carried out, unspecified reason (principal) ==